=== PATIENT | female | born 1950 | race Caucasian/White ===

== ENCOUNTER → 2016-09-02 | Outpatient (CLI) | payer BC ==
[~2016-09-02] MED LIST: estrogen
== END ==
LOC: MC.RAD 14:30
DX: Z12.31 Encounter for screening mammogram for malignant neoplasm of breast (principal)

== ENCOUNTER → 2018-03-14 | Outpatient (CLI) | payer MEDICARE, OTHER | LOC: MC.RAD 09:53 | DX: Z12.31 Encounter for screening mammogram for malignant neoplasm of breast (principal); Z98.82 Breast implant status ==

== ENCOUNTER 2019-11-08 15:42 | Observation (INO) | payer MEDICARE, OTHER ==
[~2019-11-08] VITALS: Ht 162.6 cm; Wt 59.2 kg
[~2019-11-08 15:42] MED LIST changes: -ELIQUIS 5MG PO; -PRINIVIL5 MG PO; -SYNTHROID 0.10.15 MG PO; -TROCHE BASE1 PEL
[2019-11-08] MEDS ORDERED: PRINIVIL5 MG PO (16:02)
[2019-11-08] MEDS ORDERED: SYNTHROID 0.10.15 MG PO (16:02)
[2019-11-08] MEDS ORDERED: TROCHE BASE1 PEL (16:03)
[2019-11-08 17:09] VITALS: BP 144/70; PULSE 77; TEMP 98.8
[2019-11-08 17:11] VITALS: BP 144/70; PULSE 78; TEMP 98.8
[2019-11-08 17:37] LABS: BASO % 0.5 % (0.0-2.0); EOS # 0.1 (0.0-0.7); EOS % 1.8 % (0-4.0); GRAN # 4.4 (1.4-6.5); GRAN % 71.8 % (42.2-75.2); HEMATOCRIT 39.3 % (37.0-47.0); LYMPH # 1.2 (1.2-3.4); LYMPH % 19.6 % (20.0-51.0); MEAN CELL VOLUME 98 fl (80.0-100.0); MEAN CORPUSCULAR HEMOGLOBIN 33 pg (27.0-31.0); MEAN CORPUSCULAR HGB CONC 33 g/dl (33.0-37.0); MEAN PLATELET VOLUME 10.3 fl (7.4-10.4); MONO # 0.4 (0.1-0.6); MONO % 6.1 % (1.7-9.3); PLATELET COUNT 184 K/mm3 (130-400); REDCELL DISTRIBUTION WIDTH-CV 13.4 % (11.5-14.5)
[2019-11-08 17:42] LABS: PROTHROMBIN TIME 11.6 SECONDS (9.7-12.8)
[2019-11-08 17:46] LABS: ALBUMIN 4.3 gm/dL (3.5-5.0); BILIRUBIN,TOTAL 0.5 mg/dL (0.0-1.0); CALCIUM 9.9 mg/dL (8.4-10.2); CREATININE, serum 0.97 (0.52-1.25); POTASSIUM 4.6 mmol/L (3.4-5.0); TOTAL PROTEIN 7.6 gm/dL (6.4-8.2)
[2019-11-08 17:57] LABS: TROPONIN-I 0.013 ng/mL (0.000-0.035)
--- NOTE | 2019-11-08 18:00 | NUR ---
Pt arrived to room 315. She was ambulatory to the [facility]. She is A/O x4. Her breathing is even and unlabored on RA. Pt denies SOB at rest, reports worsening with ambulation. No pain or dizziness. Denies any leg pain, swelling or redness. No N/V. IV started to LFA. POC discussed with patient who verbalizes understanding. No needs at this time. Call light within reach. Will continue to monitor.
--- NOTE | 2019-11-08 19:30 | NUR ---
Assessment complete. Up in cahir. Up Ad radha in room. Denies pain/discomfort. Denies SOA at rest. Denies needs at this time.
[2019-11-08 20:01] VITALS: BP 116/82; PULSE 76; TEMP 98.3
[2019-11-08 23:50] VITALS: BP 143/59; PULSE 59; TEMP 98
[2019-11-09 03:55] VITALS: BP 139/69; PULSE 64; TEMP 98.6
[2019-11-09 07:04] LABS: BASO % 0.6 % (0.0-2.0); EOS # 0.2 (0.0-0.7); EOS % 4.9 % (0-4.0); GRAN # 2.9 (1.4-6.5); GRAN % 61.1 % (42.2-75.2); HEMATOCRIT 37.7 % (37.0-47.0); HEMOGLOBIN 12.7 g/dl (12.5-16.0); LYMPH # 1.3 (1.2-3.4); MEAN CELL VOLUME 98 fl (80.0-100.0); MEAN CORPUSCULAR HEMOGLOBIN 33 pg (27.0-31.0); MEAN CORPUSCULAR HGB CONC 34 g/dl (33.0-37.0); MEAN PLATELET VOLUME 10.6 fl (7.4-10.4); MONO # 0.3 (0.1-0.6); MONO % 6.2 % (1.7-9.3); PLATELET COUNT 177 K/mm3 (130-400); RED BLOOD COUNT 3.84 M/mm3 (4.10-5.30); REDCELL DISTRIBUTION WIDTH-CV 13.5 % (11.5-14.5)
[2019-11-09 07:24] LABS: CALCIUM 9.5 mg/dL (8.4-10.2); CREATININE, serum 0.79 (0.52-1.25); MAGNESIUM 1.9 mg/dL (1.6-2.3); POTASSIUM 4.1 mmol/L (3.4-5.0)
[2019-11-09 08:07] VITALS: BP 131/68; PULSE 97; TEMP 98.3
--- NOTE | 2019-11-09 08:20 | NUR ---
Pt awake and alert upon entry, no C/O pain currently, heparin drip in theraputic range no change to rate. Pt talkative and appropriate. Shift asessments complete, left Pt call light in reach, bed in lowest position.
[2019-11-09 11:49] VITALS: BP 134/67; PULSE 69; TEMP 97.9
[2019-11-09] MEDS ORDERED: ELIQUIS 5MG PO (13:04)
--- NOTE | 2019-11-09 15:26 | NUR ---
Pt discharged to home, discussed discharge packet with Pt, answered all questions, escorted Pt to entrance, Pt left with fiance via private auto.
== END 2019-11-09 15:05 | disposition home or self-care (01) ==
LOC: MEDICAL 15:42
PROVIDERS: Physician Assistant; ADMIT Student in an Organized Health Care Education/Training Program
DX: I26.99 Other pulmonary embolism without acute cor pulmonale (principal); I10 Essential (primary) hypertension; E03.9 Hypothyroidism, unspecified; I08.2 Rheumatic disorders of both aortic and tricuspid valves; I42.0 Dilated cardiomyopathy; Z79.899 Other long term (current) drug therapy; Z82.49 Family history of ischemic heart disease and other diseases of the circulatory system; Z83.1 Family history of other infectious and parasitic diseases; Z80.49 Family history of malignant neoplasm of other genital organs; Z88.8 Allergy status to other drugs, medicaments and biological substances
CPT/HCPCS: G0378; J1644

== ENCOUNTER → 2019-11-08 | Outpatient (CLI) | payer MEDICARE, OTHER ==
[~2019-11-08] MED LIST changes: +ELIQUIS 5MG PO; +PRINIVIL5 MG PO; +SYNTHROID 0.10.15 MG PO; +TROCHE BASE1 PEL
== END ==
LOC: COL.LAB 07:24
DX: R06.02 Shortness of breath (principal)

== ENCOUNTER → 2019-12-04 | Outpatient (CLI) | payer MEDICARE, OTHER ==
[~2019-12-04] MED LIST changes: +ELIQUIS 5MG PO; +PRINIVIL5 MG PO; +SYNTHROID 0.10.15 MG PO; +TROCHE BASE1 PEL
== END ==
LOC: MC.RAD 11:20
DX: Z12.31 Encounter for screening mammogram for malignant neoplasm of breast (principal); Z98.82 Breast implant status

== ENCOUNTER 2021-01-13 09:00 | Outpatient (RCR) | payer MEDICARE, OTHER | END 2021-03-16 | disposition home or self-care (01) | LOC: PT.GENESIS | DX: S92.919A Unspecified fracture of unspecified toe(s), initial encounter for closed fracture (principal); M25.552 Pain in left hip; M54.50 Low back pain, unspecified ==

== ENCOUNTER → 2021-01-26 | Outpatient (CLI) | payer MEDICARE, OTHER | LOC: MC.RAD 13:09 | DX: Z12.31 Encounter for screening mammogram for malignant neoplasm of breast (principal); N64.89 Other specified disorders of breast ==

== ENCOUNTER → 2021-02-09 | Outpatient (CLI) | payer MEDICARE, OTHER | LOC: MC.RAD 13:57 | DX: N64.89 Other specified disorders of breast (principal) ==

== ENCOUNTER 2021-08-21 08:15 | Outpatient (RCR) | payer MEDICARE, OTHER | END 2021-08-25 | disposition home or self-care (01) | LOC: PT.GENESIS | DX: M25.552 Pain in left hip (principal); R26.89 Other abnormalities of gait and mobility; R53.1 Weakness ==

== ENCOUNTER 2021-09-16 08:15 | Outpatient (RCR) | payer MEDICARE, OTHER | END 2021-09-24 | disposition home or self-care (01) | LOC: PT.GENESIS | DX: M25.552 Pain in left hip (principal); R53.1 Weakness; R26.89 Other abnormalities of gait and mobility; R10.2 Pelvic and perineal pain ==

== ENCOUNTER 2021-10-19 10:15 | Outpatient (RCR) | payer MEDICARE, OTHER | END 2021-10-22 09:04 | disposition home or self-care (01) | LOC: PT.GENESIS 10:15 | DX: M25.552 Pain in left hip (principal); R53.1 Weakness; R26.89 Other abnormalities of gait and mobility; R10.2 Pelvic and perineal pain ==

== ENCOUNTER → 2023-02-24 | Outpatient (RCR) | payer MEDICARE, OTHER | END | disposition home or self-care (01) | LOC: PT.GENESIS | DX: M79.672 Pain in left foot (principal) ==

== ENCOUNTER 2023-03-03 09:00 | Outpatient (RCR) | payer MEDICARE, OTHER | END 2023-03-27 | disposition home or self-care (01) | LOC: PT.GENESIS | DX: M79.672 Pain in left foot (principal); R26.89 Other abnormalities of gait and mobility; M25.552 Pain in left hip; Z98.1 Arthrodesis status ==

== ENCOUNTER 2023-12-23 05:42 | Day surgery (SDC) | payer MEDICARE, OTHER ==
[~2023-12-23] VITALS: Ht 162.6 cm; Wt 60.5 kg
[2023-12-23] VITALS (7 sets, daily range): BP systolic 122–144; BP diastolic 50–74; PULSE 58–69; TEMP 97.5–98.1
[~2023-12-23 05:42] MED LIST changes: +LR 1,000 ML IV SCH; +Meclizine 25 MG TAB PO SCH
[2023-12-23] MEDS ORDERED: SYNTHROID0.075 MG/T PO (06:30)
[2023-12-23] MEDS ORDERED: DESYREL 50MG50 MG PO (06:31)
[2023-12-23] MEDS ORDERED: ATIVAN 0.50.5 MG/TAB PO (06:31)
[2023-12-23] MEDS ORDERED: PRINIVIL20 MG PO (06:32)
[2023-12-23] MEDS ORDERED: Midazolam 2 MG/2 ML VIAL ONE (06:52)
[2023-12-23] MEDS ORDERED: Lidocaine PF 2% (20 MG/ML) 5 ML VIAL ONE (06:53)
[2023-12-23] MEDS ORDERED: dexAMETHasone 10 MG/ML VIAL ONE (06:53)
[2023-12-23] MEDS ORDERED: Phenylephrine 10 MG/ML VIAL ONE (06:53)
[2023-12-23] MEDS ORDERED: fentaNYL 50 MCG/ML 2 ML VIAL ONE ×2 (06:53→07:42)
[2023-12-23] MEDS ORDERED: NS 100 ML IV ONE (06:53)
[2023-12-23] MEDS ORDERED: Glycopyrrolate 0.2 MG/ML 1 ML VIAL ONE (06:53)
[2023-12-23] MEDS ORDERED: Ondansetron 4 MG/2 ML VIAL ONE (06:53)
[2023-12-23] MEDS ORDERED: NS 10 ML IV ONE (06:53)
[2023-12-23] MEDS ORDERED: CEPHALEXIN500 M1 PO (07:06)
[2023-12-23] MEDS ORDERED: ASPIRIN 81M81 MG/TA2 PO (07:06)
[2023-12-23] MEDS ORDERED: ULTRAM 50MG TAB50 MG PO (07:07)
[2023-12-23] MEDS ORDERED: Naloxone 0.4 MG/ML VIAL IV PRN (07:15)
[2023-12-23] MEDS ORDERED: oxyCODONE 5 MG TAB PO PRN (07:15)
[2023-12-23] MEDS ORDERED: Morphine 4 MG/ML VIAL IV PRN (07:15)
[2023-12-23] MEDS ORDERED: EPINEPHrine 1 MG/1 ML Ampule IJ ONE (07:46)
[2023-12-23] MEDS ORDERED: dexAMETHasone 4 MG/ML VIAL IJ ONE (07:46)
[2023-12-23] MEDS ORDERED: Lidocaine 1% w EPI (1:100,000) 20 ML Multi-Dose VIAL SQ ONE (07:46)
[2023-12-23] MEDS ORDERED: hydrALAZINE 20 MG/ML 1 ML VIAL IV PRN (08:15)
[2023-12-23] MEDS ORDERED: Ondansetron 4 MG/2 ML VIAL IV PRN (08:15)
[2023-12-23] MEDS ORDERED: HYDROmorphone 1 MG/1 ML SYRINGE [PACU/SDC ONLY] IV PRN (08:15)
[2023-12-23] MEDS ORDERED: fentaNYL 50 MCG/ML 1 ML SYRINGE/VIAL [PACU/SDC ONLY] IV PRN (08:15)
--- NOTE | 2023-12-23 09:00 | NUR ---
PATIENT RETURNS TO ROOM 8 PER CART FROM PACU ACCOMPANIED BY CECELIA RN AND IS AWAKE AND ALERT. IVF INFUSING. MILTON WRAP DRESSING CLEAN AND DRY ON THE RIGHT KNEE. ICE BAG ON THE KNEE. DENIES NAUSEA. SIPPING ON SPRITE. CALL LIGHT IN REACH. ALLOWED TO REST. 0915 CONTINUES TO REST WITHOUT COMPLAINTS OF PAIN OR NAUSEA. 0930 RESTING AND NOT DISTURBED. MILTON WR[employer] DRESSING CLEAN AND DRY. 45 OFFERED SNACK AND WISHES TO EAT AT HOME. ICE BAG MAINTAINED ON THE RIGHT KNEE. 1000 IV DISCONTINUED AND SITE IS FREE OF REDNESS. SITS UP ON EDGE OF CART AND DRESSES SELF. 1020 DISCHARGE INSTRUCTIONS GIVEN AND PATIENT VOICES UNDERSTANDING OF THESE. PROVIDED OFFICE NUMBER FOR ANY QUESTIONS AND CONCERNS. PROVIDED FOLLOW UP APPOINTMENT CARD WITH DATE AND TIME. 1039 PATIENT TAKEN TO PRIVATE VEHICLE DRIVEN BY FRIEND PER WHEELCHAIR BY THIS RN WITH DISCHARGE INSTRUCTIONS IN HAND.
[2023-12-23] MEDS ORDERED: Ibuprofen 600 MG TAB PO SCH (11:04)
[2023-12-23] MEDS ORDERED: Acetaminophen 500 MG TAB PO SCH (12:00)
[2023-12-23] MEDS ORDERED: Celecoxib 200 MG CAP PO SCH (21:00)
== END 2023-12-23 10:39 | disposition home or self-care (01) ==
LOC: SDCO 05:42
DX: M23.261 Derangement of other lateral meniscus due to old tear or injury, right knee (principal); M94.8X6 Other specified disorders of cartilage, lower leg; M17.11 Unilateral primary osteoarthritis, right knee; I26.99 Other pulmonary embolism without acute cor pulmonale
CPT/HCPCS: J0171; J0665; J0690; J1100; J1170; J2250; J2371; J2405; J2704; J3010; J7120